=== PATIENT | male | born 1965 | race Two or more races ===

== ENCOUNTER 2018-04-26 20:21 | Emergency (ER) | payer OTHER ==
[2018-04-26] MEDS ORDERED: LORazepam 2 MG/ML INJ IM STA (22:42)
--- NOTE | 2018-04-26 22:45 | ED ---
Alcohol HPI - General Chief Complaint: Alcohol Stated Complaint: ETOH, Mental Health Time Seen by Provider: 04/26/18 21:25 Source: patient Mode of arrival: ambulatory Limitations: no limitations - History of Present Illness Initial Comments: 52-year-old male patient presents the emergency department today for complaints of alcohol addiction. Patient states that he has been drinking on and off for the last 11 years. States that for the last 3 months he has been drinking at least 2-4 pints of liquor daily. States that he does not want to be an alcoholic any longer and is requesting assistance with withdrawal. He denies any current physical symptoms just states that his anxiety is increased and he does not want to drink any longer. He denies any suicidal or homicidal ideation. He denies any current drug use. Patient denies any recent rash, fever, chills, shortness breath, chest pain, abdominal pain, nausea, vomiting, diarrhea, constipation, back pain, numbness, tingling, dizziness, weakness, hematuria, dysuria, urinary urgency, urinary frequency, headache, visual changes , or any other complaints. - Related Data Home Medications Medication Instructions Recorded Confirmed Multivitamins, Thera [Multivitamin 1 tab PO DAILY 04/26/18 04/26/18 (formulary)] Previous Rx's Medication Instructions Recorded LORazepam [Ativan] 1 mg PO TID PRN #9 tab 04/26/18 Allergies Allergy/AdvReac Type Severity Reaction Status Date / Time No Known Allergies Allergy Verified 04/26/18 21:25 Review of Systems ROS Statement: Those systems with pertinent positive or pertinent negative responses have been documented in the HPI. ROS Other: All systems not noted in ROS Statement are negative. Past Medical History Past Medical History: No Reported History History of Any Multi-Drug Resistant Organisms: None Reported Past Surgical History: No Surgical Hx Reported Past Psychological History: No Psychological Hx Reported Smoking Status: Current every day smoker Past Alcohol Use History: Heavy Past Drug Use History: None Reported General Exam Limitations: no limitations General appearance: alert, in no apparent distress, other (This is a well- developed, obese adult male patient in no acute distress. Vital signs upon presentation are temperature 99.3F, pulse 135, respirations 28, blood pressure 148/89, pulse ox 96% on room air.) Eye exam: Present: normal appearance, PERRL, EOMI. Absent: scleral icterus, conjunctival injection, periorbital swelling ENT exam: Present: normal exam, normal oropharynx, mucous membranes moist Respiratory exam: Present: normal lung sounds bilaterally. Absent: respiratory distress, wheezes, rales, rhonchi, stridor Cardiovascular Exam: Present: regular rate, normal rhythm, normal heart sounds. Absent: systolic murmur, diastolic murmur, rubs, gallop, clicks GI/Abdominal exam: Present: soft, normal bowel sounds. Absent: distended, tenderness, guarding, rebound, rigid Neurological exam: Present: alert, oriented X3, CN II-XII intact Psychiatric exam: Present: normal affect, normal mood Skin exam: Present: warm, dry, intact, normal color. Absent: rash Course Vital Signs 04/26/18 04/27/18 20:28 00:43 Temperature 99.3 F 98.9 F Pulse Rate 135 H 103 H Respiratory 28 H 18 Rate Blood Pressure 148/89 167/83 O2 Sat by Pulse 96 94 L Oximetry Medical Decision Making - Medical Decision Making 52-year-old male patient presented to the emergency department today requesting rehabilitation for alcohol dependence. Physical examination is unremarkable. Patient is alert and appropriate denies any suicidal or homicidal ideation. I did discuss with patient that we do not offer rehabilitation services here. I did offer Ativan prescription to assist with withdrawal symptoms and to provide resources for outpatient rehabilitation programs. Patient is agreeable to this plan and will be discharged. He is instructed to follow-up with his primary care physician for recheck in 1-2 days. Return parameters discussed in detail. He verbalizes understanding and agrees with this plan. will drive patient home. Disposition Clinical Impression: Alcohol intoxication Disposition: HOME SELF-CARE Condition: Good Instructions: Alcohol Intoxication (ED) Additional Instructions: Call [facility] for Alcohol Admission: [phone]. Follow up with your primary care physician for re-evaluation. Return here immediately for any new, worsening, or concerning symptoms. Prescriptions: LORazepam [Ativan] 1 mg PO TID PRN #9 tab PRN Reason: Anxiety, withdrawal Is patient prescribed a controlled substance at d/c from ED?: Yes When asked, does pt state using other controlled substances?: No If prescribed controlled substance>3 days was MAPS reviewed?: Prescribed <3 Days If opioid is for acute pain is fill amount 7 days or less?: No If Rx opioid, was Start Talking consent form obtained?: No Referrals: None,Stated [Primary Care Provider] - 1-2 days Time of Disposition: 22:45
[2018-04-27 00:46] VITALS: BP 167/83; PULSE 103; RESP 18; TEMP 98.9
== END 2018-04-27 00:45 | disposition home or self-care (01) ==
LOC: EC 20:21
DX: F10.129 Alcohol abuse with intoxication, unspecified (principal); E66.9 Obesity, unspecified; F41.9 Anxiety disorder, unspecified; F17.200 Nicotine dependence, unspecified, uncomplicated; Z68.42 Body mass index [BMI] 45.0-49.9, adult
CPT/HCPCS: 99283; 96372; J2060